=== PATIENT | male | born 1950 | race Caucasian/White ===

== ENCOUNTER 2017-04-16 12:10 | Day surgery (SDC) | payer MEDICARE, OTHER ==
[~2017-04-16] VITALS: Ht 182.9 cm; Wt 76.3 kg
[2017-04-16] VITALS (12 sets, daily range): BP systolic 137–189; BP diastolic 71–102; PULSE 58–74; RESP 10–19; O2SAT 97–99
--- NOTE | 2017-04-16 12:17 | ED.REPORT ---
HPI-General Illness Date of Service Apr 16, 2017 ED Provider: Yordan Alberto MD Pt is a 66 year old male with a history of HTN who presents to the ED via EMS complaining of deep, aching substernal chest pain onset 10:30 today that radiates to his left arm. The pt rates his chest pain as a 4/10, somewhat intermittent, and he reports that the Nitro and Aspirin provided en route may have helped his symptoms somewhat. He denies associated SOB, abdominal pain, vision changes, fever, nausea, vomiting, chills, neck pain, hematuria, hematochezia, focal weakness, back pain, and any other symptoms at this time. Pt denies a family history of heart disease. He reports that he is a former smoker and that he recently quit 1.5 weeks ago. Nursing Notes Stated Complaint: CHEST PAIN Chief Complaint: Chest Pain Nursing Notes Reviewed: Yes Allergies: Coded Allergies: Penicillins (Verified Allergy, Unknown, 04/16/17) metoclopramide (Verified Allergy, Unknown, anaphylaxis, 04/16/17) Scheduled Aspirin (Aspirin) 81 Mg Tablet 81 MG PO DAILY Atorvastatin (Lipitor) 40 Mg Tablet 40 MG PO HS Lisinopril (Lisinopril) 10 Mg Tablet 10 MG PO DAILY Metoprolol Tartrate (Metoprolol Tartrate) 25 Mg Tablet 25 MG PO BID Nitroglycerin SL (Nitroglycerin SL) 0.4 Mg Tab.subl 0.4 MG SL Q5MIN General Time Seen by MD: 12:16 Chief Complaint Chest pain Hx Obtained From: Patient, EMS Arrived By: Ambulance Sudden in Onset?: No Onset Occurred: 1 - 4 hours ago Symptom Duration: Since onset Location: : Chest Quality: Aching Severity: Current: Pain level 6 out of 10 Severity: Maximum: Pain level 6 out of 10 Recent Healthcare: No recent doctor visit, No recent hospitalization Similar Sx Previous: No Past Medical History Past Medical History Reports: Hypertension Past Surgical History Chest tube Reports: Appendectomy Family History Denies heart disease Smoking History Former Smoker Social History Alcohol Use: "Social" Drug Use: Denies drug use Ambulatory Status Independent Review of Systems Full Review of Systems Constitutional: Denies: Chills, Fever Eyes: Denies: Blurred bilateral Ears / Nose / Throat: Denies: Sore throat Respiratory: Denies: Shortness of breath Cardiovascular: Reports: Chest pain GI: Denies: Abdominal pain, Hematemesis, Hematochezia, Nausea, Vomiting Musculoskeletal: Reports: Extremity pain (left arm), Denies: Back pain, Neck pain Hematologic: Denies Bruising Skin: Denies Rash Neurologic: Denies: Focal weakness, Vision change Psychiatric: Denies: Change mental status, Depression Complete sys rev & neg: except as marked. Physical Exam Nursing note and vitals reviewed. Constitutional: Well-developed, well-nourished. Not diaphoretic. Head: Normocephalic and atraumatic. Mouth/Throat: Oropharynx is clear and moist. No oropharyngeal exudate. Eyes: EOM are normal. Pupils are equal, round, and reactive to light. Neck: Supple, no tracheal deviation. Cardiovascular: Normal rate, regular rhythm. Equal and intact distal pulses throughout. Pulmonary/Chest: Effort normal and breath sounds normal. No respiratory distress. Abdominal: Soft. No distension. There is no tenderness, rebound, or guarding. Bowel sounds present. Musculoskeletal: Range of motion grossly intact, moving all extremities. No edema or tenderness appreciated. Neurological: AOx3. Grossly nonfocal exam. Strength and sensation intact and equal to bilateral upper and lower extremities. Skin: Warm and dry, no rashes or pallor appreciated. Psychiatric: Appropriate mood and affect. Behavior appears normal. Vital Signs Vital Signs Date Time Temp Pulse Resp B/P Pulse Ox O2 Delivery O2 Flow Rate FiO2 04/16/17 14:46 72 16 189/96 99 Room Air 04/16/17 13:31 67 15 162/85 97 Room Air 04/16/17 12:16 36.8 66 12 181/81 98 Room Air Initial VS: Reviewed Interpretation & Diagnostics Lab Results Interpretation Result Diagram: 04/16/17 1235 04/16/17 1235 Test 04/16/17 12:35 White Blood Count 9.3th/mm3 (3.8-10.1) Red Blood Count 4.57mil/mm3 (4.40-5.80) Hemoglobin 14.2g/dL (13.8-17.2) Hematocrit 41.4% (41.0-50.0) Mean Corpuscular Volume 90.6fL (81-100) Mean Corpuscular Hemoglobin 31.1pg (27.0-35.0) Mean Corpuscular Hemoglobin Concent 34.3% (32.0-37.0) Red Cell Distribution Width 13.8% (12.3-15.4) Platelet Count 251bil/L (150-400) Neutrophils (%) (Auto) 59.3% (40-74) Lymphocytes (%) (Auto) 26.8% (14-46) Monocytes (%) (Auto) 11.8% (4-12) Eosinophils (%) (Auto) 1.5% (0-5) Basophils (%) (Auto) 0.5% (0-3) Prothrombin Time 9.8sec (8.1-12.5) Prothromb Time International Ratio 0.92ratio Sodium Level 135mEq/L (134-144) Potassium Level 5.5mEq/L (3.5-5.2) Chloride Level 99mEq/L (97-108) Carbon Dioxide Level 20mmol/L (18-29) Blood Urea Nitrogen 15mg/dL (8-27) Creatinine 0.93mg/dL (0.76-1.27) Estimat Glomerular Filtration Rate 88mL/min (>59) Glucose Level 96mg/dL (60-99) Calcium Level 9.3mg/dL (8.5-10.1) Magnesium Level 2.1mg/dL (1.6-2.6) Total Bilirubin 0.3mg/dL (0.0-1.2) Aspartate Amino Transf (AST/SGOT) 25U/L (0-50) Alanine Aminotransferase (ALT/SGPT) 21U/L (0-44) Alkaline Phosphatase 105U/L (25-160) Total Creatine Kinase 140U/L (21-232) Creatine Kinase MB 2.1ng/mL (0.0-10.4) Creatine Kinase MB % % (0.0-5.0) Troponin T < 0.010ug/L (0.0-0.011) Total Protein 7.7g/dL (6.4-8.4) Albumin 4.5g/dL (3.4-5.0) Lab Results Interpretation: CBC - Within normal limits Initial troponin - negative ECG Interpretation ECG Interpretation: Sinus rhythm with a rate of 70 Left atrial enlargement RBBB lateral infract, acute Interpreted by: ED physician ECG Interpretation: Sinus rhythm with a rate of 63 Left atrial enlargement RBBB lateral infract, acute Time: 12:23 Interpreted by: ED physician X-Ray Chest Interpretation Chest Xray Interpretation: IMPRESSION: Subtle right basilar opacity compatible with early pneumonia versus atelectasis. Dictated by: Lizbeth Torrez MD, PhD on 04/16/2017 at 12:53 View: Portable, 1 view Interpretation / Wet Read by: Interpret - Radiologist Re-Eval/Medical Decision Med Decision/Clinical Course In summary, 66-year-old male presenting to the ED for evaluation of substernal chest pain with occasional radiation to the left arm. Differential is broad and includes ACS, PE, aortic dissection, cardiac tamponade, pneumothorax, etc. Doubt PE given no pleuritic symptoms, good oxygen saturations, no significant risk factors and low risk by Well[employer]. No wide mediastinum, pain described as tearing or radiating through to the back; aortic dissection seems very unlikely at this time. No evidence of pneumothorax on chest x-ray or exam. Not hypotensive, no muffled heart sounds, no JVD. Initial laboratory studies reviewed, grossly within normal limits with the exception of a potassium of 5.5. Initial troponin negative. Still having some discomfort at this time; given nitroglycerin prior to arrival. Chest x-ray demonstrates a subtle right basilar opacity compatible with early pneumonia versus atelectasis; no clinical findings that would correlate with pneumonia at this time. EKG demonstrates hyperacute T waves in the lateral leads. I discussed the patient with the food and beverage manager, as noted below. After discussion with the medical billing representative and with the patient, the decision was made to take the patient to the catheterization lab. Patient agreeable to the plan as stated, no further questions. Source of Hx: Old records Time of Eval: 12:40 Re-Evaluation/Progress Note: Informed pt of plan for treatment and need for stress test. Pt understands and agrees with plan. All questions addressed. Time of Eval: 14:37 Re-Evaluation/Progress Note: Pt recheck. Pt is completely pain free. All questions addressed. Time of Eval: 14:37 Re-Evaluation/Progress Note: Pt rechecked. Informed pt of plan for treatment and admission with Dr. Leary at [facility]. Pt understands and agrees with plan for treatment and admission. All questions addressed. Consultation : Referral / Consult Name: Erwin Dao MD Consulted With: Hospitalist Call Returned at: 15:03 Registered Massage Therapist: Will see patient, Agrees with eval, Agrees with plan, Accepts admit Note: Accepts admit. Pt went with Dr. Leary to the laboratory animal care veterinarian. Counseled Regarding: Diagnosis, Lab results, Need for admission Discharge & Departure Primary Impression: Acute coronary syndrome Disposition: ADMITTED TO HOSPITAL Discharge Condition All VS Reviewed: Yes Condition: Stable Referrals: [facility] Except Billable Proc Time Spent: 30-74 minutes Services Performed: Patient management by me, Time spent at bedside, Reviewing test results, Reviewing imaging, Discussing patient care, Documentation in record, Time with fam/surrogate Critical Care Notes: Please see DENISE. Rick Attestation Portions of this note were transcribed by Viviana Cobos. I, Dr. Alberto personally performed the history, physical exam and medical decision-making; I reviewed and confirmed the accuracy of the information in the transcribed note. Signed by: Rick Alvarado, 04/16/17. copies to: [facility] Yordan Alberto MD Apr 16, 2017 12:16 Viviana Lopez Apr 16, 2017 12:38
[2017-04-16 12:46] LABS: BASOPHILS % (AUTO) 0.5 % (0-3); EOSINOPHILS % (AUTO) 1.5 % (0-5); MONOCYTES % (AUTO) 11.8 % (4-12); Mean Corpuscular Hemoglobin 31.1 pg (27.0-35.0); Mean Corpuscular Volume 90.6 fL (81-100); NEUTROPHILS % (AUTO) 59.3 % (40-74); Platelet Count 251 bil/L (150-400)
--- NOTE | 2017-04-16 12:55 | DRSVH ---
PROCEDURE: X-RAY CHEST ONE VIEW, PORTABLE ([id number]) INDICATIONS: chest pain TECHNIQUE: One view of the chest was acquired. COMPARISON: None. FINDINGS: Surgical changes and devices: None. Lungs and pleura: No pleural effusions or pneumothorax. Subtle, focal opacity noted in the mesial as pect of the right lung base which could represent atelectasis or early pneumonia. Mediastinum: Mediastinal contours appear normal. Heart size is normal. Bones and chest wall: No suspicious bony lesions. Overlying soft tissues appear unremarkable. IMPRESSION: Subtle right basilar opacity compatible with early pneumonia versus atelectasis. Dictated by: Lizbeth Torrez MD, PhD on 04/16/2017 at 12:53 Approved by: Lizbeth Torrez MD, PhD on 04/16/2017 at 12:54
[2017-04-16 13:00] LABS: INR 0.92 ratio
[2017-04-16 13:15] LABS: TROPONIN T < 0.010 ug/L (0.0-0.011)
[2017-04-16 13:19] LABS: Magnesium 2.1 mg/dL (1.6-2.6)
[2017-04-16] MEDS ORDERED: fentaNYL-PF 50 mCg/mL 2 mL Inj ONE (14:00)
[2017-04-16] MEDS ORDERED: Nitroglycerin 50,000 mcg/250 mL D5W Premix IV ONE (14:37)
[2017-04-16] MEDS ORDERED: Heparin 1,000 Unit/mL 10 mL Inj ONE (14:37)
[2017-04-16] MEDS ORDERED: Heparin 1,000 Units/500 mL NS Premix IV ONE (14:37)
[2017-04-16] MEDS ORDERED: Heparin 10,000 Unit/1,000 mL NS Premix IV ONE (14:38)
[2017-04-16] MEDS ORDERED: 0.9% Sodium Chloride 1,000 ML IV SCH (15:01)
--- NOTE | 2017-04-16 15:02 | CONS ---
[address] [address] CONSULTATION REPORT PATIENT: HENNA ECKERT : 11/26/1956 MR#: [id number] ADMIT: 04/16/2017 JOB ID: [id number] DATE OF SERVICE: 04/16/2017 CARDIOLOGY CONSULTATION: Request by Dr. Alberto. REASON FOR EVALUATION: Abnormal EKG. HISTORY: The patient is a 66-year-old male with history of hypertension, hypercholesterolemia and lifelong smoker. He was in his usual state of health until today around 10:15 a.m. while he was standing. He suddenly developed left arm discomfort. He described as an ache. He rated at 6/10. It radiated to his chest. There were no associated symptoms. He denies shortness of breath, nausea or diaphoresis. Medics arrived around 11:20 a.m. He was given nitroglycerin and aspirin. His chest discomfort has disappeared after that. The patient arrived at [facility] at 12:23 p.m. EKG shows sinus rhythm, rate 63 per minute. Hyperacute T-waves in the lateral leads. Cardiology consultation was then obtained. PAST MEDICAL HISTORY: 1. Hypertension. 2. Hypercholesterolemia. PAST SURGICAL HISTORY: Appendectomy. CURRENT MEDICATIONS: 1. Lisinopril. 2. Nifedipine. 3. Atorvastatin. ALLERGIES: To PENICILLIN and REGLAN. SOCIAL HISTORY: He lives with his in [place]. He smokes one pack per day for 40 years and quit smoking eight days ago. He also chewed tobacco one can a month for six or seven years. He drinks 4-5 beers every day. He denies any drugs. 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 FAMILY HISTORY: His mother from stroke. REVIEW OF SYSTEMS: All 10 systems are reviewed and noncontributory. PHYSICAL EXAMINATION: Reveals a 66-year-old male appearing in no acute distress. Temperature is 36.3. Blood pressure is 162/85. Pulse 67. Skin is warm and dry. Head and face have normal configuration. Anicteric sclerae. Moist mucosa. Neck supple. No jugular venous distention or carotid bruits. Chest: Normal expansion. Lungs are clear to auscultation. Heart: The first and second heart sound normal. No gallop or murmur. Abdomen: Soft and nontender and without hepatosplenomegaly. Back: No CVA tenderness. Extremities: No clubbing, cyanosis or edema. Peripheral pulses are equal bilaterally. Neurologic: Grossly intact. EKG shows sinus rhythm. Right bundle branch block. Hyperacute T-waves in lateral leads. BLOOD TESTS: Show hemoglobin 14.2, WBC 9.3, platelet 251. Sodium 135, potassium 5.5, chloride 99, bicarbonate 20, BUN 15, creatinine 0.93, magnesium 2.1. AST 25. Troponin less than 0.01. IMPRESSION: 1. Acute coronary syndrome. 2. Hypertension. 3. Hypercholesterolemia. 4. Nicotine addiction. PLAN: I advised the patient that he had to stop smoking and drinking. He will be treated with aspirin, beta allison, SUZY inhibitor and statin. I discussed the investigation and treatment options with serial cardiac enzyme and EKG follow by undergo exercise treadmill stress test in the morning versus coronary angiogram and possible percutaneous intervention. The patient preferred to undergo coronary angiogram. The risks and benefits of the procedure have been explained to the patient and his . He understands and agrees to proceed with the procedure. FRANCOIS
[2017-04-16] MEDS ORDERED: Atropine 1 mg/10 mL (Code) Syringe IVPUSH PRN ×2 (15:05→16:25)
[2017-04-16] MEDS ORDERED: Polyethylene Glycol (PEG) 17 Gm Powder PO PRN (15:05)
[2017-04-16] MEDS ORDERED: Alum-Mag Hydrox-Simeth 30 mL Suspension PO PRN (15:05)
[2017-04-16] MEDS ORDERED: Ondansetron 2 mg/mL 2 mL Inj IVPUSH PRN ×2 (15:05→16:25)
[2017-04-16] MEDS ORDERED: Senna-Docusate 8.6-50 mg Tablet PO PRN (15:05)
[2017-04-16 15:38] LABS: Creatine Kinase 140 U/L (21-232)
--- NOTE | 2017-04-16 16:05 | DIS ---
[address] [address] DISCHARGE SUMMARY PATIENT: HENNA ECKERT : 1950 MR#: [id number] ADMIT: 04/16/2017 JOB ID: [id number] DIS: 04/16/2017 ADMITTING DIAGNOSIS: Acute coronary syndrome. DISCHARGE DIAGNOSIS: Acute coronary syndrome. SECONDARY DIAGNOSES: 1. Hypertension. 2. Hypercholesterolemia. 3. Nicotine addiction. PROCEDURE: 1. Selective coronary angiogram. 2. Left ventricular angiogram. VASCULAR CLOSURE DEVICE: StarClose. COMPLICATIONS: None. HISTORY: Please see the detailed history in my consultation note dated April 16, 2017. The patient is a 63-year-old male with history of hypertension, hypercholesterolemia, and lifelong smoker. He smokes about one pack per day for 40 years. He also chewed tobacco one can per month for six or seven years. The patient presented with sudden onset chest discomfort. EKG showed hyperacute T-waves in the lateral leads. Cardiac enzymes were normal. HOSPITAL COURSE: The patient underwent coronary angiogram, which demonstrated diffuse moderate tubular disease of all coronary arteries. The patient was discharged from the hospital on the same day. He was advised to stop smoking and stop drinking. He will follow up with me in 6-8 weeks. DISCHARGE MEDICATIONS: 1. Aspirin 81 mg daily (new). 2. Metoprolol 25 mg b.i.d. (new). 3. Lisinopril 10 mg daily. 4. Atorvastatin 40 mg (dose increased). 5. Nitroglycerin 0.4 mg sublingual p.r.n. (new). [facility]
[2017-04-16] MEDS ORDERED: LIP40 PO (16:18)
[2017-04-16] MEDS ORDERED: LISI10TA PO (16:18)
[2017-04-16] MEDS ORDERED: METO25TA6 PO (16:18)
[2017-04-16] MEDS ORDERED: NITR0.4T6 SL (16:18)
[2017-04-16] MEDS ORDERED: ASPI-973 PO (16:18)
--- NOTE | 2017-04-16 16:22 | NUR ---
Patient knows the names of his medications but does not know the dosages.I attempted to call the [facility] pharmacy multiple times and multiple numbers without success. per Dr Tillman his medications are to be as he has written on the prescription.
--- NOTE | 2017-04-16 16:22 | CS94 ---
[address] [address] DIAGNOSTIC CARDIAC CATHETERIZATION PATIENT: HENNA ECKERT : 1950 MR#: [id number] ADMIT: 04/16/2017 JOB ID: [id number] SERVICE DATE: 04/16/2017 PATIENT PROFILE: The patient is a 66-year-old male with history of hypertension, hypercholesterolemia, and lifelong smoker. He presented with acute coronary syndrome. PROCEDURE: 1. Retrograde left heart catheterization. 2. Selective coronary angiography. 3. Left ventricular angiogram. VASCULAR CLOSURE DEVICE: StarClose. COMPLICATIONS: None. METHOD: Retrograde left heart catheterization was performed from the right groin under 1% lidocaine local anesthesia using a 6-Slovenian sheath. Selective coronary angiogram was performed in multiple projections, including cranial and caudal angulations with hand injected contrast via JL4 and 3DRC catheters. A 6-Slovenian angulated pigtail catheter was advanced to the left ventricle and left ventricular angiogram was performed in the 30 degree MARSH view by injecting contrast at the rate of 10 cc/second for 3 seconds. This catheter was withdrawn. Left ventricular angiogram was performed. Following sheath removal, hemostasis was achieved by using a StarClose device. The patient tolerated procedure well. He was transferred to [facility] in good condition. TOTAL CONTRAST USED: 70 cc. FLUOROSCOPY TIME: 1.1 minutes. RESULTS: 1. Selective coronary angiogram: a. Left main coronary artery is normal. b. The left anterior descending artery is transapical and has diffuse tubular disease of 20% to 30% stenosis. c. The circumflex artery has diffuse disease of 20% to 40% stenosis. The major obtuse marginal branch has diffuse disease 20% to 40% stenosis. d. The dominant right coronary artery has diffuse tubular disease of 30% to 50% stenosis. 2. Left ventricular angiogram demonstrates normal left ventricular systolic function (visually estimated ejection fraction 60%). There is no wall motion abnormality. There is no mitral regurgitation. 3. There is no gradient across the aortic valve on catheter withdrawal. 4. Aortic pressure is 170/70 mmHg. Left ventricular pressure is 170/5 mmHg. 5. Left ventricular end diastolic pressure is 25 mmHg. CONCLUSION: 1. Diffuse moderate tubular disease. 2. Left ventricular ejection fraction 60%. 3. LVEDP is 25 mmHg. MTDD
[2017-04-16] MEDS ORDERED: 0.9% Sodium Chloride 250 ML BOLUS IV PRN (16:25)
[2017-04-16] MEDS ORDERED: Sodium Chloride LOK Flush 10 mL Syringe IVFLUSH PRN (16:25)
[2017-04-16] MEDS ORDERED: 0.9% Sodium Chloride 400 ML (4 HRS) IV ONE (16:25)
[2017-04-16] MEDS ORDERED: Sodium Chloride LOK Flush 10 mL Syringe IVFLUSH SCH (16:30)
--- NOTE | 2017-04-16 19:02 | NUR ---
Pt assisted to sitting at bedside and up to BR without any difficulty or discomfort. No hematoma. DC instructions given, verbalizes understanding. DC'd at 1900.
== END 2017-04-16 23:59 | disposition home or self-care (01) ==
LOC: SED 12:10 → EDBD 12:10 → SED 14:47 → SOUO 14:47
PROVIDERS: ATTEND Internal Medicine Interventional Cardiology
DX: I24.9 Acute ischemic heart disease, unspecified (principal); I25.10 Atherosclerotic heart disease of native coronary artery without angina pectoris; I10 Essential (primary) hypertension; E78.00 Pure hypercholesterolemia, unspecified; F17.210 Nicotine dependence, cigarettes, uncomplicated; Z72.89 Other problems related to lifestyle
CPT/HCPCS: 36415; 71010; 80053; 82550; 82553; 83036; 83735; 84484; 85025; 85610; 93005; 93458; 99152; 99153; 99291; C1760; C1769; J1644; J2250; J3010; Q9967